=== PATIENT | female | born 1975 | race Caucasian/White ===

== ENCOUNTER 2016-12-14 18:17 | Emergency (ER) | payer MEDICAID, OTHER ==
[2016-12-14] MEDS ORDERED: NORMAL SALINE 1000 ML 1,000 ML IV PRN (18:55)
[2016-12-14] MEDS ORDERED: KETOROLAC TROMETHAMINE INJ/PF 30 MG/1 ML SDV IV ONE (19:00)
[2016-12-14] MEDS ORDERED: DIPHENHYDRAMINE HCL 50 MG/ML VIAL IV ONE (19:00)
[2016-12-14] MEDS ORDERED: METOCLOPRAMIDE HCL INJ/PF 10 MG/2 ML SDV IV ONE (19:00)
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
[2016-12-14 20:01] LABS: ABSOLUTE BASOPHILS # (AUTO) 0.2 10^3/uL (0.0-0.2); ABSOLUTE EOSINOPHILS # (AUTO) 0.5 10^3/uL (0.0-0.6); ABSOLUTE LYMPHOCYTES (AUTO) 3.5 10^3/uL (0.5-4.7); ABSOLUTE MONOCYTES (AUTO) 0.9 10^3/uL (0.1-1.4); ABSOLUTE NEUT (AUTO) 8.7 10^3/uL (1.7-8.2); BASOPHILS % (AUTO) 1.1 % (0-2); EOSINOPHILS % (AUTO) 3.3 % (0-6); HEMOGLOBIN 13.6 g/dL (12.0-15.5); HGB HCT DIFFERENCE 0.8; LYMPHOCYTES % (AUTO) 25.6 % (13-45); MEAN CORPUSCULAR HEMOGLOBIN 29.6 pg (27.0-33.4); MEAN CORPUSCULAR HGB CONC 33.9 g/dL (32.0-36.0); MEAN CORPUSCULAR VOLUME 87 fl (80-97); MONOCYTES % (AUTO) 6.8 % (3-13); RED BLOOD COUNT 4.59 10^6/uL (3.72-5.28); RED CELL DISTRIBUTION WIDTH 13.7 % (11.5-14.0); SEGMENTED NEUTROPHILS % (AUTO) 63.2 % (42-78); WHITE BLOOD COUNT 13.8 10^3/uL (4.0-10.5)
[2016-12-14 20:07] LABS: ALANINE AMINOTRANSFERASE 13 U/L (9-52); ALKALINE PHOSPHATASE 71 U/L (38-126); ANION GAP 12 (5-19); ASPARTATE AMINO TRANSFERASE 18 U/L (14-36); BILIRUBIN,DIRECT 0.4 mg/dL (0.0-0.4); BILIRUBIN,TOTAL 0.4 mg/dL (0.2-1.3); BLOOD UREA NITROGEN 15 mg/dL (7-20); CALCIUM 8.7 mg/dL (8.4-10.2); CARBON DIOXIDE 23 mmol/L (22-30); CHLORIDE 105 mmol/L (98-107); CREATININE RESULT 0.71 mg/dL (0.52-1.25); GLUCOSE 123 mg/dL (75-110); POTASSIUM 4.1 mmol/L (3.6-5.0); SODIUM 139.7 mmol/L (137-145); TOTAL PROTEIN 6.7 g/dL (6.3-8.2)
[2016-12-14 22:36] VITALS: BP 135/99
== END 2016-12-14 22:35 | disposition home or self-care (01) ==
LOC: ER 18:17
DX: M54.2 Cervicalgia (principal); R51 Headache; F17.210 Nicotine dependence, cigarettes, uncomplicated
CPT/HCPCS: 99284; 96361; 96374; 96375; 36415; 85025; 80053; J1200; J1885; J2765; J7030

== ENCOUNTER → 2017-04-22 | Emergency (ER) | payer MEDICAID ==
--- NOTE | 2017-04-23 09:13 | RADIOLOGY REPORT (SQ) ---
EXAM DESCRIPTION: ELBOW LEFT OVER 2 VIEWS COMPLETED DATE/TIME: 04/23/2017 3:29 am REASON FOR STUDY: FALL COMPARISON: None. NUMBER OF VIEWS: Four views. TECHNIQUE: AP, lateral, and both oblique radiographic images acquired of the left elbow. LIMITATIONS: None. FINDINGS: MINERALIZATION: Normal. BONES: No acute fracture or dislocation. No worrisome bone lesions. JOINT: No effusion. SOFT TISSUES: No soft tissue swelling. No foreign body. OTHER: No other significant finding. IMPRESSION: NEGATIVE STUDY OF THE LEFT ELBOW. NO RADIOGRAPHIC EVIDENCE OF ACUTE INJURY. TECHNICAL DOCUMENTATION: JOB ID: [id number] [employer]- All Rights Reserved
--- NOTE | 2017-04-23 09:17 | RADIOLOGY REPORT (SQ) ---
EXAM DESCRIPTION: KNEE LEFT 4 VIEW COMPLETED DATE/TIME: 04/23/2017 3:29 am REASON FOR STUDY: FALL COMPARISON: None. NUMBER OF VIEWS: Four views. TECHNIQUE: AP, lateral, and both oblique radiographic images acquired of the left knee. LIMITATIONS: None. FINDINGS: MINERALIZATION: Normal. BONES: No acute fracture or dislocation. No worrisome bone lesions. JOINT: No effusion. SOFT TISSUES: No soft tissue swelling. No radio-opaque foreign body. OTHER: No other significant finding. IMPRESSION: NEGATIVE STUDY OF THE LEFT KNEE. NO RADIOGRAPHIC EVIDENCE OF ACUTE INJURY. TECHNICAL DOCUMENTATION: JOB ID: [id number] [employer]- All Rights Reserved
== END ==
LOC: ER 17:55
DX: S13.9XXA Sprain of joints and ligaments of unspecified parts of neck, initial encounter (principal); S80.02XA Contusion of left knee, initial encounter; S50.02XA Contusion of left elbow, initial encounter; M25.522 Pain in left elbow; M25.562 Pain in left knee; M54.2 Cervicalgia; W00.0XXA Fall on same level due to ice and snow, initial encounter; F17.200 Nicotine dependence, unspecified, uncomplicated
CPT/HCPCS: 99283

== ENCOUNTER 2017-04-27 08:34 | Day surgery (SDC) | payer MEDICAID ==
[2017-04-23 11:47] LABS: HEMATOCRIT 39.4 % (36.0-47.0); HEMOGLOBIN 13.4 g/dL (12.0-15.5); MEAN CORPUSCULAR HEMOGLOBIN 29.8 pg (27.0-33.4); MEAN CORPUSCULAR HGB CONC 34.1 g/dL (32.0-36.0); MEAN CORPUSCULAR VOLUME 87 fl (80-97); PLATELET COUNT 381 10^3/uL (150-450); RED BLOOD COUNT 4.51 10^6/uL (3.72-5.28); RED CELL DISTRIBUTION WIDTH 13.6 % (11.5-14.0); WHITE BLOOD COUNT 10.5 10^3/uL (4.0-10.5)
[2017-04-23 11:53] LABS: APPEARANCE,URINE SLIGHTLY-CLOUDY; BILIRUBIN,URINE NEGATIVE (NEGATIVE); COLOR,URINE YELLOW; GLUCOSE, URINE NEGATIVE (NEGATIVE); KETONES,URINE NEGATIVE (NEGATIVE); LEUKOCYTE ESTERASE,URINE NEGATIVE (NEGATIVE); NITRITE,URINE NEGATIVE (NEGATIVE); PROTEIN,URINE NEGATIVE (NEGATIVE); URINE SPECIFIC GRAVITY 1.023; UROBILINOGEN,URINE NEGATIVE mg/dL (<2.0)
[~2017-04-27 08:34] MED LIST: LACTATED RINGERS 1000 ML IV PRN; LIDOCAINE 0.5% INJ-PF (5 MG/ML) 50 ML SDV SUBCUT PRN
[2017-04-27] MEDS ORDERED: MIDAZOLAM 2 MG/2 ML INJ ONE ×2 (09:09→09:22)
[2017-04-27] MEDS ORDERED: FENTANYL CITRATE INJ/PF 100 MCG/2 ML AMPUL ONE ×3 (09:22→10:38)
[2017-04-27] MEDS ORDERED: PROPOFOL INJ 200 MG/20 ML VIAL IV ONE (09:23)
[2017-04-27] MEDS ORDERED: ONDANSETRON HCL INJ/PF 4 MG/2 ML SDV ONE ×2 (09:23→11:56)
[2017-04-27] MEDS ORDERED: ACETAMINOPHEN 100 ML IV ONE (09:52)
[2017-04-27] MEDS ORDERED: DIPHENHYDRAMINE HCL 50 MG/ML VIAL IV PRN (09:58)
[2017-04-27] MEDS ORDERED: PROMETHAZINE HCL INJ 25 MG/1 ML VIAL IV PRN ×2 (09:58)
[2017-04-27] MEDS ORDERED: FENTANYL CITRATE INJ/PF 100 MCG/2 ML AMPUL IV PRN ×2 (09:58)
[2017-04-27] MEDS ORDERED: MEPERIDINE HCL/PF INJ 25 MG/1 ML DISP.SYRIN IV PRN (09:58)
--- NOTE | 2017-04-27 10:24 | Operative Report ---
Operative Report DATE OF SURGERY: 04/27/17 PREOPERATIVE DIAGNOSIS: Heavy menses POSTOPERATIVE DIAGNOSIS: Same OPERATION: Hysteroscopy NovaSure ablation SURGEON: KRISTI MCCONNELL ANESTHESIA: GA TISSUE REMOVED OR ALTERED: Endometrial cavity COMPLICATIONS: None ESTIMATED BLOOD LOSS: 10 cc INTRAOPERATIVE FINDINGS: Endometrial cavity appeared empty. She had a very tight stenotic cervical OS. The uterine cavity was 5.5 cm in length and 4 cm in width. The sound was to 8 cm before and after the case PROCEDURE: Patient was taken the OR and placed in supine position. General anesthesia was induced. She is placed in dorsolithotomy position using Nathan stirrups. Her perineum and vagina were prepared and draped in sterile fashion. Her bladder was emptied with a red rubber catheter. A weighted speculum was placed in the anterior lip cervix grasped with tenaculum. Uterus was sounded to 8 cm before and at the end of the case. With some degree of difficulty the cervix was dilated. It was a very firm cervical loss and difficult to dilate. Hysteroscopy was performed in the uterine cavity appeared empty. The length of the uterine cavity was measured at 5.5 cm. The NovaSure ablation device was placed in the width was 4 cm. The ablation was tested and then fired without difficulty. View of the uterine cavity showed a well ablated uterine cavity at the end of the case. There is no evidence of injury to the uterine cavity. Sound once again was 8 cm. All instruments were removed. There was a small cervical laceration from the tenaculum that was closed with a [id number] chromic suture. The patient was placed back in supine position brought out of anesthesia and taken recovery recovery room in stable condition.
[2017-04-27] MEDS ORDERED: IBUPROFEN 800 MG TABLET PO PRN (10:32)
[2017-04-27] MEDS ORDERED: OXYCODONE-ACETAMINOPHEN 5-325 MG TABLET PO PRN ×2 (10:33)
[2017-04-27] MEDS ORDERED: KETOROLAC TROMETHAMINE INJ/PF 30 MG/1 ML SDV ONE (10:38)
[2017-04-27] MEDS: FENTANYL CITRATE INJ/PF 100 MCG/2 ML AMPUL IV PRN ×2 (10:43→10:56)
[2017-04-27] MEDS ORDERED: KETOROLAC TROMETHAMINE INJ/PF 30 MG/1 ML SDV IV PRN (11:00)
[2017-04-27] MEDS ORDERED: DEXAMETHASONE SOD PHOS INJ 10 MG/1 ML VIAL ONE (11:58)
[2017-04-27 13:26] VITALS: BP 145/92
[2017-04-27] MEDS ORDERED: KETOROLAC TROMETHAMINE 60 MG/2 ML SDV ONE (13:34)
== END 2017-04-27 12:30 | disposition home or self-care (01) ==
LOC: OROUT 08:34
PROVIDERS: ATTEND Obstetrics & Gynecology
PROC: 0U5B8ZZ Destruction of Endometrium, Via Natural or Artificial Opening Endoscopic (ICD-10-PCS; principal; 2017-04-27 10:45)
DX: N92.0 Excessive and frequent menstruation with regular cycle (principal); N94.6 Dysmenorrhea, unspecified; N88.2 Stricture and stenosis of cervix uteri; N93.9 Abnormal uterine and vaginal bleeding, unspecified; I10 Essential (primary) hypertension; Z87.891 Personal history of nicotine dependence; Z79.899 Other long term (current) drug therapy; Z88.5 Allergy status to narcotic agent
CPT/HCPCS: 36415; 85027; 81001; 58563; J2250; J1885 ×2; J3010; J2405; J2704; J1100; J0131; 952; J2550

== ENCOUNTER 2017-05-21 21:20 | Emergency (ER) | payer MEDICAID ==
[2017-05-21 22:36] VITALS: BP 122/81
--- NOTE | 2017-05-22 00:03 | RADIOLOGY REPORT (SQ) ---
EXAM DESCRIPTION: FOOT RIGHT COMPLETE CLINICAL HISTORY: Pain s/p injury. A pipe fell on the right first toe. Bruising our first toe. COMPARISON: None. FINDINGS: 3 views of the right foot. No acute fracture or dislocation. Normal osseous mineralization. No radiopaque foreign bodies or subcutaneous air. IMPRESSION: No acute fracture or dislocation.
[2017-05-22] MEDS ORDERED: HYDROCODONE/ACETAMINOPHEN 5-325 MG TABLET PO ONE (00:04)
--- NOTE | 2017-05-22 00:06 | ER Document Report ---
ED General - General Chief Complaint: R foot injury Stated Complaint: FOOT INJURY Time Seen by Provider: 05/21/17 23:26 Mode of Arrival: Ambulatory Information source: Patient Notes: 41-year-old female presents with complaints of foot injury. Patient notes to metal pipes fell on her foot prior to arrival. Patient presents with a postop shoe that she has had from previous foot injuries she denies any other complaints TRAVEL OUTSIDE OF THE [place] IN LAST 30 DAYS: No - HPI Onset: Just prior to arrival Onset/Duration: Sudden Quality of pain: Achy Severity: Mild Pain Level: 1 Associated symptoms: Body/muscle aches, Other Exacerbated by: Movement, Walking Relieved by: Denies Similar symptoms previously: No Recently seen / treated by doctor: No - Related Data Allergies/Adverse Reactions: morphine Allergy (Verified 04/27/17 08:55) tramadol Allergy (Verified 04/27/17 08:55) Difficulty breathing Past Medical History - Social History Smoking Status: Never Smoker Cigarette use (# per day): No Chew tobacco use (# tins/day): No Smoking Education Provided: No Family History: Reviewed & Not Pertinent - Past Medical History Cardiac Medical History: Reports: Hx Hypertension Denies: Hx Coronary Artery Disease, Hx Heart Attack Pulmonary Medical History: Denies: Hx Asthma, Hx Bronchitis, Hx COPD, Hx Pneumonia Neurological Medical History: Denies: Hx Cerebrovascular Accident, Hx Seizures Renal/ Medical History: Denies: Hx Peritoneal Dialysis Musculoskeltal Medical History: Denies Hx Arthritis Psychiatric Medical History: Reports: Hx Anxiety Past Surgical History: Reports: Hx Breast Surgery - implants, Hx Orthopedic Surgery - right wrist plates and screws, Hx Tubal Ligation - Immunizations Hx Diphtheria, Pertussis, Tetanus Vaccination: Yes Hx Pneumococcal Vaccination: 01/14/17 Review of Systems - Review of Systems Notes: REVIEW OF SYSTEMS: CONSTITUTIONAL : Denies fever, chills, or sweats. Denies recent illness. EENT: Denies eye, ear, throat, or mouth pain or symptoms. Denies nasal or sinus congestion or discharge. Denies throat, tongue, or mouth swelling or difficulty swallowing. CARDIOVASCULAR: Denies chest pain. Denies palpitations or racing or irregular heart beat. Denies ankle edema. RESPIRATORY: Denies cough, cold, or chest congestion. Denies shortness of breath, difficulty breathing, or wheezing. GASTROINTESTINAL: Denies abdominal pain or distention. Denies nausea, vomiting , or diarrhea. Denies blood in vomitus, stools, or per rectum. Denies black, tarry stools. Denies constipation. GENITOURINARY: Denies difficulty urinating, painful urination, burning, frequency, blood in urine, or discharge. FEMALE GENITOURINARY: Denies vaginal bleeding, heavy or abnormal periods, irregular periods. Denies vaginal discharge or odor. MUSCULOSKELETAL: Admits to toe pain SKIN: Denies rash, lesions or sores. HEMATOLOGIC : Denies easy bruising or bleeding. LYMPHATIC: Denies swollen, enlarged glands. NEUROLOGICAL: Denies confusion or altered mental status. Denies passing out or loss of consciousness. Denies dizziness or lightheadedness. Denies headache. Denies weakness or paralysis or loss of use of either side. Denies problems with gait or speech. Denies sensory loss, numbness, or tingling. Denies seizures. PSYCHIATRIC: Denies anxiety or stress. Denies depression, suicidal ideation, or homicidal ideation. ALL OTHER SYSTEMS REVIEWED AND NEGATIVE. PHYSICAL EXAMINATION: PHYSICAL EXAMINATION: GENERAL: Well-appearing, well-nourished and in no acute distress. HEAD: Atraumatic, normocephalic. EYES: Pupils equal round extraocular movements intact, conjunctiva are normal. ENT: Nares patent NECK: Normal range of motion LUNGS: No respiratory distress Musculoskeletal: Normal range of motion NEUROLOGICAL: Normal speech, normal gait. PSYCH: Normal mood, normal affect. SKIN: tender to palpation of the 1st digit with echymosis on the plantar medial aspect Physical Exam - Vital signs Vitals: Temp Pulse Resp BP Pulse Ox 97.7 F 95 16 122/81 98 05/21/17 22:29 05/21/17 22:29 05/21/17 22:29 05/21/17 22:29 05/21/17 22:29 Course - Re-evaluation Re-evalutation: 05/22/17 06:51 Patient's x-ray noted no acute abnormality patient overall looks well is in no distress, x-ray is consistent with just a contusion, she already has a postop shoe, patient will be given pain control follow-up with orthopedics After performing a Medical Screening Examination, I estimate there is LOW risk for INTRACRANIAL HEMORRHAGE, UNSTABLE SPINE FRACTURE, CENTRAL CORD SYNDROME, CAUDA EQUINA, THORACIC AORTIC DISSECTION, PNEUMOTHORAX, PERFORATED BOWEL, RUPTURED ABDOMINAL AORTIC ANEURYSM, ACUTE TENDON RUPTURE, COMPARTMENT SYNDROME, or OPEN FRACTURE, thus I consider the discharge disposition reasonable. Also, there is no evidence or peritonitis, sepsis, or toxicity. I have reevaluated this patient multiple times and no significant life threatening changes are noted. The patient and I have discussed the diagnosis and risks, and we agree with discharging home to follow-up with their primary doctor with the understanding that symptoms and presentations can change. We also discussed returning to the Emergency Department immediately if new or worsening symptoms occur. We have discussed the symptoms which are most concerning (e.g., bloody stool, fever, changing or worsening pain, vomiting) that necessitate immediate return. - Vital Signs Vital signs: Temp Pulse Resp BP Pulse Ox 97.7 F 95 16 122/81 98 05/21/17 22:29 05/21/17 22:29 05/21/17 22:29 05/21/17 22:29 05/21/17 22:29 - Diagnostic Test Radiology reviewed: Image reviewed, Reports reviewed - no acute abnormality Discharge - Discharge Clinical Impression: Contusion of bone, Ecchymosis Foot injury Qualifiers: Encounter type: initial encounter Laterality: right Qualified Code(s): S99.921A - Unspecified injury of right foot, initial encounter Condition: Stable Disposition: HOME, SELF-CARE Prescriptions: Hydrocodone/Acetaminophen [Anson 5-325 mg Tablet] 1 tab PO Q6 #14 tablet Referrals: SUZANNE CHAVEZ MD [Primary Care Provider] - Follow up as needed COURTNEY IVERSON MD [ACTIVE STAFF] - Follow up in 3-5 days
== END 2017-05-22 00:33 | disposition home or self-care (01) ==
LOC: ER 21:20
DX: S90.31XA Contusion of right foot, initial encounter (principal); W20.8XXA Other cause of strike by thrown, projected or falling object, initial encounter; Z88.6 Allergy status to analgesic agent; I10 Essential (primary) hypertension; Z98.51 Tubal ligation status
CPT/HCPCS: 99283

== ENCOUNTER → 2017-11-14 | Outpatient (CLI) | payer MEDICAID | LOC: OD 11:28 | PROVIDERS: ATTEND Nurse Practitioner Acute Care | DX: R31.9 Hematuria, unspecified (principal) | CPT/HCPCS: 87086 ==

== ENCOUNTER 2018-01-01 09:59 | Emergency (ER) | payer MEDICAID ==
[2018-01-01] MEDS ORDERED: DICYCLOMINE HCL INJ 20 MG/2 ML AMPULE IM ONE (10:20)
--- NOTE | 2018-01-01 10:21 | ER Document Report ---
ED Medical Screen (RME) - General Chief Complaint: Vaginal Bleeding Stated Complaint: SKIN SORES, ABDOMINAL PAIN Time Seen by Provider: 01/01/18 10:13 Notes: 42 years old female with a history of uterine ablation almost 10 months ago, did not have any uterine bleeding but for the last 2 months having on and off bleeding with abdominal cramp. The cramping was so severe this morning therefore present to the ED. No fever chills or other constitutional symptoms. Continuously having on and off vaginal bleeding. TRAVEL OUTSIDE OF THE [place] IN LAST 30 DAYS: No - Related Data Allergies/Adverse Reactions: morphine Allergy (Verified 01/01/18 10:01) tramadol Allergy (Verified 01/01/18 10:01) Difficulty breathing Past Medical History - Social History Frequency of alcohol use: Occasional - Past Medical History Cardiac Medical History: Reports: Hx Hypertension Denies: Hx Coronary Artery Disease, Hx Heart Attack Pulmonary Medical History: Denies: Hx Asthma, Hx Bronchitis, Hx COPD, Hx Pneumonia Neurological Medical History: Denies: Hx Cerebrovascular Accident, Hx Seizures Renal/ Medical History: Denies: Hx Peritoneal Dialysis Musculoskeltal Medical History: Denies Hx Arthritis Psychiatric Medical History: Reports: Hx Anxiety Past Surgical History: Reports: Hx Breast Surgery - implants, Hx Orthopedic Surgery - right wrist plates and screws, Hx Tubal Ligation - Immunizations Hx Diphtheria, Pertussis, Tetanus Vaccination: Yes History of Influenza Vaccine for 01/2017 - 06/2017 Season: No Physical Exam - Vital signs Vitals: Temp Pulse Resp BP Pulse Ox 97.4 F 95 18 115/81 97 01/01/18 10:05 01/01/18 10:05 01/01/18 10:05 01/01/18 10:05 01/01/18 10:05 Course - Vital Signs Vital signs: Temp Pulse Resp BP Pulse Ox 97.4 F 95 18 115/81 97 01/01/18 10:05 01/01/18 10:05 01/01/18 10:05 01/01/18 10:05 01/01/18 10:05 Doctor's Discharge - Discharge Referrals: CHEYENNE JOHN NP [Primary Care Provider] - Follow up as needed
[2018-01-01] MEDS: KETOROLAC TROMETHAMINE INJ/PF 30 MG/1 ML SDV IV ONE ×2 (10:44→10:48)
[2018-01-01] MEDS ORDERED: KETOROLAC TROMETHAMINE 60 MG/2 ML SDV IM ONE (10:51)
[2018-01-01] MEDS ORDERED: KETOROLAC TROMETHAMINE 60 MG/2 ML SDV ONE (10:52)
[2018-01-01 11:12] LABS: ABSOLUTE BASOPHILS # (AUTO) 0.1 10^3/uL (0.0-0.2); ABSOLUTE EOSINOPHILS # (AUTO) 0.2 10^3/uL (0.0-0.6); ABSOLUTE LYMPHOCYTES (AUTO) 3.1 10^3/uL (0.5-4.7); ABSOLUTE MONOCYTES (AUTO) 1.1 10^3/uL (0.1-1.4); ABSOLUTE NEUT (AUTO) 8.9 10^3/uL (1.7-8.2); BASOPHILS % (AUTO) 0.6 % (0-2); EOSINOPHILS % (AUTO) 1.7 % (0-6); HEMATOCRIT 39.2 % (36.0-47.0); HEMOGLOBIN 13.4 g/dL (12.0-15.5); LYMPHOCYTES % (AUTO) 23.1 % (13-45); MEAN CORPUSCULAR HEMOGLOBIN 29.4 pg (27.0-33.4); MEAN CORPUSCULAR HGB CONC 34.1 g/dL (32.0-36.0); MEAN CORPUSCULAR VOLUME 86 fl (80-97); MONOCYTES % (AUTO) 7.9 % (3-13); PLATELET COUNT 373 10^3/uL (150-450); RED BLOOD COUNT 4.54 10^6/uL (3.72-5.28); RED CELL DISTRIBUTION WIDTH 13.6 % (11.5-14.0); SEGMENTED NEUTROPHILS % (AUTO) 66.7 % (42-78); TOTAL CELLS COUNTED % (AUTO) 100 %; WHITE BLOOD COUNT 13.4 10^3/uL (4.0-10.5)
[2018-01-01 11:28] LABS: APPEARANCE,URINE CLEAR; BILIRUBIN,URINE NEGATIVE (NEGATIVE); COLOR,URINE YELLOW; GLUCOSE, URINE NEGATIVE (NEGATIVE); KETONES,URINE NEGATIVE (NEGATIVE); URINE SPECIFIC GRAVITY 1.028
[2018-01-01 11:30] LABS: LEUKOCYTE ESTERASE,URINE NEGATIVE (NEGATIVE); NITRITE,URINE NEGATIVE (NEGATIVE); PROTEIN,URINE 30 mg/dL (NEGATIVE); UROBILINOGEN,URINE NEGATIVE mg/dL (<2.0)
[2018-01-01] MEDS ORDERED: HYDROCODONE/ACETAMINOPHEN 5-325 MG TABLET PO ONE (11:33)
[2018-01-01 11:42] LABS: ALANINE AMINOTRANSFERASE 12 U/L (9-52); ALKALINE PHOSPHATASE 46 U/L (38-126); ANION GAP 7 (5-19); ASPARTATE AMINO TRANSFERASE 15 U/L (14-36); BILIRUBIN,DIRECT 0.4 mg/dL (0.0-0.4); BILIRUBIN,TOTAL 0.5 mg/dL (0.2-1.3); BLOOD UREA NITROGEN 15 mg/dL (7-20); CALCIUM 9.1 mg/dL (8.4-10.2); CARBON DIOXIDE 29 mmol/L (22-30); CHLORIDE 104 mmol/L (98-107); GLUCOSE 94 mg/dL (75-110); POTASSIUM 3.9 mmol/L (3.6-5.0); SODIUM 140.1 mmol/L (137-145); TOTAL PROTEIN 6.8 g/dL (6.3-8.2)
--- NOTE | 2018-01-01 13:27 | RADIOLOGY REPORT (SQ) ---
EXAM DESCRIPTION: U/S NON-OB PELVIS TV W/O DOP COMPLETED DATE/TIME: 01/01/2018 1:18 pm REASON FOR STUDY: Uterine bleeding COMPARISON: None. TECHNIQUE: Dynamic and static grayscale images acquired of the pelvis via transvaginal approach and recorded on PACS. Additional selected color Doppler and spectral images recorded. LIMITATIONS: None. FINDINGS: UTERUS: 5 cm heterogenous mass in the fundus. ENDOMETRIAL STRIPE: No focal or generalized thickening. No masses. CERVIX: No nabothian cysts. RIGHT OVARY AND DOPPLER: Normal size. No worrisome masses. Normal arterial vascular flow without evid ence for torsion. LEFT OVARY AND DOPPLER: Ovary not visualized. FREE FLUID: None noted. OTHER: No other significant finding. MEASUREMENTS: UTERUS: 6.7 x 7.9 x 9.6 cm. ENDOMETRIAL STRIPE: 7 mm. RIGHT OVARY: 2.2 x 2.3 x 3.1 cm. LEFT OVARY: Not visualized. IMPRESSION: 5 CM HETEROGENOUS MASS IN THE FUNDUS OF THE UTERUS, PRESUMABLY A FIBROID. TECHNICAL DOCUMENTATION: JOB ID: [id number]- All Rights Reserved Rev-08/31 Reading location - IP/workstation name: [email or web address]
--- NOTE | 2018-01-01 13:28 | ER Document Report ---
ED General - General Chief Complaint: Vaginal Bleeding Stated Complaint: SKIN SORES, ABDOMINAL PAIN Time Seen by Provider: 01/01/18 10:13 Mode of Arrival: Ambulatory TRAVEL OUTSIDE OF THE [place] IN LAST 30 DAYS: No - HPI Patient complains to provider of: vaginal bleeding Onset: Other - 42-year-old female with past medical history significant for a tubal ligation as well as 2 presents for evaluation of painful vaginal spotting over the last 2 months after having had an endometrial ablation a year prior. She denies any chest pain abdominal pain diarrhea constipation dysuria shortness of breath lightheadedness fevers or chills, does note that the blood seems a little bit darker today. - Related Data Allergies/Adverse Reactions: morphine Allergy (Verified 01/01/18 10:01) tramadol Allergy (Verified 01/01/18 10:01) Difficulty breathing Past Medical History - General Information source: Patient - Social History Smoking Status: Current Every Day Smoker Frequency of alcohol use: Occasional Family History: Reviewed & Not Pertinent Patient has suicidal ideation: No Patient has homicidal ideation: No - Past Medical History Cardiac Medical History: Reports: Hx Hypertension Denies: Hx Coronary Artery Disease, Hx Heart Attack Pulmonary Medical History: Denies: Hx Asthma, Hx Bronchitis, Hx COPD, Hx Pneumonia Neurological Medical History: Denies: Hx Cerebrovascular Accident, Hx Seizures Renal/ Medical History: Denies: Hx Peritoneal Dialysis Musculoskeletal Medical History: Denies Hx Arthritis Psychiatric Medical History: Reports: Hx Anxiety Past Surgical History: Reports: Hx Breast Surgery - implants, Hx Orthopedic Surgery - right wrist plates and screws, Hx Tubal Ligation - Immunizations Hx Diphtheria, Pertussis, Tetanus Vaccination: Yes Hx Pneumococcal Vaccination: 01/14/17 Review of Systems - Review of Systems -: Yes All other systems reviewed and negative Physical Exam - Vital signs Vitals: Temp Pulse Resp BP Pulse Ox 97.4 F 95 18 115/81 97 01/01/18 10:05 01/01/18 10:05 01/01/18 10:05 01/01/18 10:05 01/01/18 10:05 - General General appearance: Appears well In distress: None - HEENT Head: Normocephalic Eyes: Normal Conjunctiva: Normal Cornea: Normal Extraocular movements intact: Yes Eyelashes: Normal - Respiratory Respiratory status: No respiratory distress Chest status: Nontender Breath sounds: Normal Chest palpation: Normal - Cardiovascular Rhythm: Regular Murmur: No - Abdominal Inspection: Normal Distension: No distension Tenderness: Tender - Suprapubic aspect - Back Back: Normal - Extremities General upper extremity: Normal inspection, Nontender, Normal ROM, Normal strength General lower extremity: Normal inspection, Nontender, Normal ROM, Normal strength - Neurological Neuro grossly intact: Yes Cognition: Normal Orientation: AAOx4 Josué Coma Scale Eye Opening: Spontaneous Josué Coma Scale Verbal: Oriented Josué Coma Scale Motor: Obeys Commands [place] Coma Scale Total: 15 Speech: Normal Cranial nerves: Normal Motor strength normal: LUE, RUE, LLE, RLE - Psychological Associated symptoms: Normal affect Course - Re-evaluation Re-evalutation: 01/01/18 15:00 42-year-old female presents for cramping and vaginal bleeding in the setting of having a previous tubal ligation as well as endometrial ablation year prior. Examination her abdomen is benign, she looks overall well, she has been using ibuprofen and Tylenol as well as heating pads for pain. Through triage this patient had an ultrasound ordered as well as basic blood work, blood work did not demonstrate any obvious abnormality at this time. Patient's overall well-appearing, transvaginal ultrasound demonstrates that the patient has what appears to be a relatively large fibroid. No obvious cysts identified on the ovarian structures. Plan will be for this patient undergo discharge with encouraged follow-up at her boiler assistant operator. She will be given a prescription for Provera for her painful vaginal bleeding, she will be given ibuprofen to deal with her pain. - Vital Signs Vital signs: Temp Pulse Resp BP Pulse Ox 97.4 F 95 18 115/81 97 01/01/18 10:05 01/01/18 10:05 01/01/18 10:05 01/01/18 10:05 01/01/18 10:05 - Laboratory Result Diagrams: 01/01/18 10:45 01/01/18 10:45 Laboratory results interpreted by me: 01/01/18 01/01/18 10:45 10:45 WBC 13.4 H Absolute Neutrophils 8.9 H Urine Protein 30 H Urine Blood LARGE H Discharge - Discharge Clinical Impression: Vaginal bleeding, Pelvic pain Condition: Good Disposition: HOME, SELF-CARE Instructions: Pelvic Pain ([facility]), Vaginal Bleeding ([facility]) Additional Instructions: He was seen in the emergency department for your pelvic cramping, he had an evaluation including a physical exam as well as ultrasound and blood work. It seems like your pain is likely related to a fibroid. Use the medication prescribed to you as directed. Call your boiler assistant operator or cnc lathe machine operator tomorrow for an appointment. Return for worsening chest pain, shortness of breath, abdominal pain. Prescriptions: Ibuprofen 400 mg PO QID #40 capsule Medroxyprogesterone Acetate [Provera] 5 mg PO DAILY #15 tablet Referrals: CHEYENNE JOHN NP [Primary Care Provider] - Follow up as needed
[2018-01-01 14:19] VITALS: BP 131/75
== END 2018-01-01 14:19 | disposition home or self-care (01) ==
LOC: ER 09:59
DX: N93.9 Abnormal uterine and vaginal bleeding, unspecified (principal); R10.2 Pelvic and perineal pain; I10 Essential (primary) hypertension; F17.200 Nicotine dependence, unspecified, uncomplicated; Z98.51 Tubal ligation status; Z98.890 Other specified postprocedural states; Z88.5 Allergy status to narcotic agent
CPT/HCPCS: 99284; 36415; 83690; 85025; 81025; 80053; 81001; 76830; J0500; J1885 ×2

== ENCOUNTER 2019-03-18 20:03 | Inpatient (IN) | payer SELFPAY ==
[2019-03-18 20:35] LABS: ABSOLUTE LYMPHOCYTES (AUTO) 3.2 10^3/uL (0.5-4.7); ABSOLUTE MONOCYTES (AUTO) 0.6 10^3/uL (0.1-1.4); ABSOLUTE NEUT (AUTO) 10.7 10^3/uL (1.7-8.2); BASOPHILS % (AUTO) 0.3 % (0-2); HEMATOCRIT 43.3 % (36.0-47.0); HEMOGLOBIN 14.8 g/dL (12.0-15.5); LYMPHOCYTES % (AUTO) 21.9 % (13-45); MEAN CORPUSCULAR HEMOGLOBIN 29.9 pg (27.0-33.4); MEAN CORPUSCULAR HGB CONC 34.2 g/dL (32.0-36.0); MEAN CORPUSCULAR VOLUME 87 fl (80-97); MONOCYTES % (AUTO) 4.3 % (3-13); PLATELET COUNT 375 10^3/uL (150-450); RED BLOOD COUNT 4.97 10^6/uL (3.72-5.28); RED CELL DISTRIBUTION WIDTH 13.5 % (11.5-14.0); SEGMENTED NEUTROPHILS % (AUTO) 73.5 % (42-78); TOTAL CELLS COUNTED % (AUTO) 100 %; WHITE BLOOD COUNT 14.5 10^3/uL (4.0-10.5)
[2019-03-18] MEDS ORDERED: NORMAL SALINE 1000 ML 1,000 ML IV ONE (20:36)
--- NOTE | 2019-03-18 20:43 | ER Document Report ---
ED Psych Disorder / Suicide - General Chief Complaint: Overdose Stated Complaint: OVERDOSE Time Seen by Provider: 03/18/19 20:20 Primary Care Provider: CHEYENNE JOHN, ASHOK [NURSE PRACTITIONER] - Follow up as needed Mode of Arrival: Medic Information source: Patient, Relative - Son, Nasim Mohamud [phone] Notes: Patient is a 43-year-old female presenting to emergency department with an apparent acetaminophen overdose. Patient's son called 911 from another state as he was concerned about his mother, when EMS got there she was found lying on the floor in her closet with multiple acetaminophen bottles near her. There is 2 bottles of pills and one bottle of liquid. She was alert and oriented with normal vital signs however she was not forthcoming with information on how much Tylenol she took or when she took it. TRAVEL OUTSIDE OF THE [place] IN LAST 30 DAYS: No - Related Data Allergies/Adverse Reactions: morphine Allergy (Verified 01/01/18 10:01) tramadol Allergy (Verified 01/01/18 10:01) Difficulty breathing Past Medical History - General Information source: Patient - Social History Smoking Status: Current Every Day Smoker Frequency of alcohol use: Occasional Drug Abuse: None Lives with: Alone Family History: Reviewed & Not Pertinent Patient has suicidal ideation: Yes Patient has homicidal ideation: No - Past Medical History Cardiac Medical History: Reports: Hx Hypertension Denies: Hx Coronary Artery Disease, Hx Heart Attack Pulmonary Medical History: Denies: Hx Asthma, Hx Bronchitis, Hx COPD, Hx Pneumonia Neurological Medical History: Denies: Hx Cerebrovascular Accident, Hx Seizures Renal/ Medical History: Denies: Hx Peritoneal Dialysis Musculoskeletal Medical History: Denies Hx Arthritis Psychiatric Medical History: Reports: Hx Anxiety Past Surgical History: Reports: Hx Breast Surgery - implants, Hx Orthopedic Surgery - right wrist plates and screws, Hx Tubal Ligation - Immunizations Hx Diphtheria, Pertussis, Tetanus Vaccination: Yes Hx Pneumococcal Vaccination: 01/14/17 Review of Systems - Review of Systems Constitutional: No symptoms reported EENT: No symptoms reported Cardiovascular: No symptoms reported Respiratory: No symptoms reported Gastrointestinal: No symptoms reported Genitourinary: No symptoms reported Female Genitourinary: No symptoms reported Musculoskeletal: No symptoms reported Skin: No symptoms reported Hematologic/Lymphatic: No symptoms reported Neurological/Psychological: See HPI Physical Exam - Vital signs Vitals: Temp Pulse Resp BP Pulse Ox 97.5 F 114 H 26 H 145/106 H 99 03/18/19 20:13 03/18/19 20:13 03/18/19 20:13 03/18/19 20:13 03/18/19 20:13 - Notes Notes: PHYSICAL EXAMINATION: GENERAL: Well-nourished and in no acute distress. HEAD: Atraumatic, normocephalic. EYES: Pupils equal round and reactive to light, extraocular movements intact, conjunctiva are normal. ENT: Nares patent, oropharynx clear without exudates. Moist mucous membranes. NECK: Normal range of motion, supple without lymphadenopathy LUNGS: Breath sounds clear to auscultation bilaterally and equal. No wheezes rales or rhonchi. HEART: Regular rate and rhythm without murmurs ABDOMEN: Soft, nontender, nondistended abdomen. No guarding, no rebound. No masses appreciated. Female : deferred Musculoskeletal: Normal range of motion, no pitting or edema. No cyanosis. NEUROLOGICAL: Cranial nerves grossly intact. Normal speech, normal gait. Normal sensory, motor exams PSYCH: Tearful, poor eye contact. Flat affect. SKIN: Warm, Dry, normal turgor, no rashes or lesions noted. Course - Re-evaluation Re-evalutation: 03/18/19 20:37 Spoke with patient's son, Nasim Mohamud [phone], he states that patient just broke up with her boyfriend Andres Bear a few days ago. Patient's son reports patient has had depression issues over the last couple of years in relation to divorce and custody issues. Patient son reports that patient was found lying in her closet with 3 bottles of Tylenol. It is unknown how much she took or at what timeframe she took the Tylenol. Patient is awake, alert, not very forthcoming with information. Patient keeps stating that she was just trying to go to sleep. Patient denies any chronic medical conditions, denies the use of any daily medications, reports occasional alcohol use, is a smoker but denies any drug use. Labs pending. Nursing staff currently changing out patient. 03/18/19 21:26 Laboratory 03/18/19 03/18/19 20:10 20:10 WBC 14.5 H RBC 4.97 Hgb 14.8 Hct 43.3 MCV 87 MCH 29.9 MCHC 34.2 RDW 13.5 Plt Count 375 Lymph % (Auto) 21.9 [place] % (Auto) 4.3 Eos % (Auto) 0.0 Baso % (Auto) 0.3 Absolute Neuts (auto) 10.7 H Absolute Lymphs (auto) 3.2 Absolute Monos (auto) 0.6 Absolute Eos (auto) 0.0 Absolute Basos (auto) 0.0 Seg Neutrophils % 73.5 Sodium 145.1 H Potassium 3.7 Chloride 107 Carbon Dioxide 19 L Anion Gap 19 BUN 11 Creatinine 0.87 Est GFR ( Amer) > 60 Est GFR (MDRD) Non-Af > 60 Glucose 188 H Calcium 9.3 Total Bilirubin 0.4 Direct Bilirubin 0.2 Neonat Total Bilirubin Not Reportable Neonat Direct Bilirubin Not Reportable Neonat Indirect Bili Not Reportable AST 21 ALT 13 Alkaline Phosphatase 46 Total Protein 7.4 Albumin 4.7 Salicylates 1.3 L Acetaminophen 251 H* Serum Alcohol 97 Patient's acetaminophen level is elevated at 251. EKG shows a sinus tachycardia, rate of 108, QTc 477, normal axis, no ST segment elevations or depr essions to suggest ischemia. Acetadote orders placed. IVC paperwork initiated and signed by attending physician Dr. Moses. Patient will be admitted to the intensive care unit shortly. Patient continues to be awake, alert, not forthcoming with information. Discussed plan of care with patient. 03/18/19 21:36 Spoke with ICU roundhouse supervisor, DHRUV Mobley. 03/18/19 23:[address] Ritchie, patient accepted for admission to telemetry floor. Patient remains alert, oriented, vital signs within normal limits, Acetadote infusion ongoing. - Vital Signs Vital signs: Temp Pulse Resp BP Pulse Ox 97.5 F 114 H 26 H 145/106 H 99 03/18/19 20:15 03/18/19 20:13 03/18/19 20:16 03/18/19 20:15 03/18/19 20:16 - Laboratory Result Diagrams: 03/18/19 20:10 03/18/19 20:10 Laboratory results interpreted by me: 03/18/19 03/18/19 03/18/19 20:10 20:10 20:10 WBC 14.5 H Absolute Neuts (auto) 10.7 H Sodium 145.1 H Carbon Dioxide 19 L Glucose 188 H Creatine Kinase 192 H Salicylates 1.3 L Acetaminophen 251 H* Discharge - Discharge Clinical Impression: Acetaminophen overdose Qualifiers: Encounter type: initial encounter Injury intent: undetermined intent Qualified Code(s): T39.1X4A - Poisoning by 4-Aminophenol derivatives, undetermined, initial encounter Condition: Stable Disposition: ADMITTED INPATIENT Admitting Provider: Chau (Hospitalist) Unit Admitted: Telemetry Referrals: CHEYENNE JOHN NP [NURSE PRACTITIONER] - Follow up as needed
[2019-03-18 20:45] LABS: ALBUMIN 4.7 g/dL (3.5-5.0); ALCOHOL 97 mg/dL (NONE DETECTED); ALKALINE PHOSPHATASE 46 U/L (38-126); ASPARTATE AMINO TRANSFERASE 21 U/L (14-36); BILIRUBIN,DIRECT 0.2 mg/dL (0.0-0.4); BILIRUBIN,TOTAL 0.4 mg/dL (0.2-1.3); BLOOD UREA NITROGEN 11 mg/dL (7-20); CALCIUM 9.3 mg/dL (8.4-10.2); CARBON DIOXIDE 19 mmol/L (22-30); CHLORIDE 107 mmol/L (98-107); GLUCOSE 188 mg/dL (75-110); POTASSIUM 3.7 mmol/L (3.6-5.0); SALICYLATE 1.3 mg/dL (2.0-20.0); TOTAL PROTEIN 7.4 g/dL (6.3-8.2)
[2019-03-18] MEDS ORDERED: ONDANSETRON HCL INJ/PF 4 MG/2 ML SDV IV ONE (20:48)
[2019-03-18 20:50] LABS: ANION GAP 19 (5-19)
[2019-03-18 21:08] LABS: ACETAMINOPHEN 251 ug/mL (10-30)
[2019-03-18] MEDS ORDERED: ACETYLCYSTEINE INJ 6000 MG/30 ML IV ONE ×2 (21:15→22:15)
[2019-03-18] MEDS ORDERED: IPRATROPIUM/ALBUTEROL 0.5-2.5 MG/3 ML AMPUL NEB PRN (23:26)
[2019-03-18] MEDS ORDERED: MAGNESIUM HYDROXIDE SUSP 30 ML UDCUP PO PRN (23:26)
[2019-03-18] MEDS ORDERED: MAG HYDROX/AL HYDROX/SIMETH SUSP 30 ML UDCUP PO PRN (23:26)
[2019-03-18] MEDS ORDERED: METOCLOPRAMIDE HCL INJ/PF 10 MG/2 ML SDV IV ONE (23:44)
[2019-03-18] MEDS ORDERED: ARIPIPRAZOLE 5 MG TABLET PO ONE (23:59)
--- NOTE | 2019-03-19 00:35 | EKG REPORT ---
SEVERITY:- BORDERLINE ECG - SINUS TACHYCARDIA PROBABLE LEFT ATRIAL ABNORMALITY : Confirmed by: Raquel Gipson MD 19-Mar-2019 00:33:59
[2019-03-19 00:50] LABS: APPEARANCE,URINE CLEAR; BILIRUBIN,URINE NEGATIVE (NEGATIVE); COLOR,URINE YELLOW; GLUCOSE, URINE 150 mg/dL (NEGATIVE); KETONES,URINE 80 mg/dL (NEGATIVE); LEUKOCYTE ESTERASE,URINE NEGATIVE (NEGATIVE); NITRITE,URINE NEGATIVE (NEGATIVE); PROTEIN,URINE 30 mg/dL (NEGATIVE); URINE SPECIFIC GRAVITY 1.027; UROBILINOGEN,URINE NEGATIVE mg/dL (<2.0)
[2019-03-19 01:11] LABS: URINE AMPHETAMINES SCREEN NEGATIVE; URINE BARBITURATES SCREEN NEGATIVE; URINE BENZODIAZEPINES SCREEN NEGATIVE; URINE COCAINE SCREEN NEGATIVE; URINE METHADONE SCREEN NEGATIVE; URINE PHENCYCLIDINE SCREEN NEGATIVE
[2019-03-19 01:12] LABS: URINE MARIJUANA (THC) SCREEN UNCONFIRMED POSITIVE
[2019-03-19] MEDS ORDERED: ACETYLCYSTEINE INJ 6000 MG/30 ML IV ONE (02:15)
[2019-03-19] MEDS: HEPARIN SOD (PORCINE) 5,000 UNIT/ML 1 ML VIAL SUBCUT SCH ×3 (05:36→21:17)
--- NOTE | 2019-03-19 06:02 | PDOC H&P ---
History of Present Illness Admission Date/PCP: 03/18/19 23:57 Patient complains of: Depression with overdose History of Present Illness: DANIELITO CHAVEZ is a 43 year old female with past medical history of depression, tobacco and substance abuse. She presents after discovered by her son disheveled with empty bottles of Tylenol. Patient was brought to the emergency room for evaluation found to have a toxic acetaminophen level of 251 and started on Acetadote. Patient is IVC and unwilling to provide history or cooperate with provider other than stating she was on antidepressants in the past but otherwise describes her "situation is crazy" but does not elaborate. Past Medical History Cardiac Medical History: Reports: Hypertension Denies: Coronary Artery Disease, Myocardial Infarction Pulmonary Medical History: Denies: Asthma, Bronchitis, Chronic Obstructive Pulmonary Disease (COPD), Pneumonia Neurological Medical History: Denies: Seizures Musculoskeltal Medical History: Denies: Arthritis Psychiatric Medical History: Reports: Depression, Substance Abuse, Tobacco Dependency Hematology: Denies: Anemia Past Surgical History Past Surgical History: Reports: Orthopedic Surgery - right wrist plates and screws, Tubal Ligation Social History Information Source: Patient Lives with: Alone Smoking Status: Current Every Day Smoker Drugs: Marijuana - Advance Directive Resuscitation Status: Full Code Family History Family History: Other - Refuses Parental Family History Reviewed: No - Unknown Children Family History Reviewed: No - Unknown Sibling(s) Family History Reviewed.: No - Unknown Medication/Allergy Home Medications: Buspirone HCl [Buspar 10 mg Tablet] 10 mg PO DAILY 02/18/16 Duloxetine HCl [Cymbalta] 60 mg PO DAILY 02/18/16 Hydrocodone/Acetaminophen [Warren 5-325 mg Tablet] 1 tab PO Q4 PRN 02/18/16 Brexpiprazole [Rexulti] 1 mg PO DAILY 04/18/17 Lisinopril 20 mg PO DAILY 04/18/17 Suvorexant [Belsomra] 10 mg PO HSP PRN 04/18/17 Hydrocodone/Acetaminophen [Warren 5-325 mg Tablet] 1 tab PO Q6 #14 tablet 05/22/17 Ibuprofen 400 mg PO QID #40 capsule 01/01/18 Medroxyprogesterone Acetate [Provera] 5 mg PO DAILY #15 tablet 01/01/18 Allergies/Adverse Reactions: morphine Allergy (Verified 01/01/18 10:01) tramadol Allergy (Verified 01/01/18 10:01) Difficulty breathing Review of Systems ROS unobtainable: Due to mental status - Refuses Physical Exam Vital Signs: Temp Pulse Resp BP Pulse Ox 97.5 F 114 H 18 159/107 H 100 03/18/19 20:15 03/18/19 20:13 03/19/19 04:01 03/19/19 04:00 03/19/19 04:37 Intake & Output 03/17/19 03/18/19 03/19/19 11:59 11:59 11:59 Intake Total 1000 Balance 1000 Weight 58.3 kg General appearance: PRESENT: disheveled, mild distress, well-developed, well- nourished. ABSENT: cooperative, obese Head exam: PRESENT: atraumatic, normocephalic Eye exam: PRESENT: conjunctiva pink, EOMI, PERRLA. ABSENT: scleral icterus Ear exam: PRESENT: normal external ear exam Mouth exam: PRESENT: moist, tongue midline Neck exam: ABSENT: carotid bruit, JVD, lymphadenopathy, thyromegaly Respiratory exam: PRESENT: clear to auscultation karl. ABSENT: rales, rhonchi, wheezes Cardiovascular exam: PRESENT: RRR. ABSENT: diastolic murmur, rubs, systolic murmur Pulses: PRESENT: normal dorsalis pedis pul Vascular exam: PRESENT: normal capillary refill GI/Abdominal exam: PRESENT: normal bowel sounds, soft. ABSENT: distended, guarding, mass, organolmegaly, rebound, tenderness Rectal exam: PRESENT: deferred Extremities exam: PRESENT: full ROM. ABSENT: calf tenderness, clubbing, pedal edema Neurological exam: PRESENT: alert, awake, oriented to person, oriented to place, oriented to time, oriented to situation, CN II-XII grossly intact. ABSENT: motor sensory deficit Psychiatric exam: PRESENT: flat affect Skin exam: PRESENT: dry, intact, warm. ABSENT: cyanosis, rash Results Laboratory Results: 03/18/19 03/18/19 03/18/19 20:10 20:10 20:10 WBC 14.5 H RBC 4.97 Hgb 14.8 Hct 43.3 MCV 87 MCH 29.9 MCHC 34.2 RDW 13.5 Plt Count 375 Seg Neutrophils % 73.5 Sodium 145.1 H Potassium 3.7 Chloride 107 Carbon Dioxide 19 L Anion Gap 19 BUN 11 Creatinine 0.87 Est GFR ( Amer) > 60 Glucose 188 H Calcium 9.3 Magnesium 1.8 Total Bilirubin 0.4 AST 21 Alkaline Phosphatase 46 Total Protein 7.4 Albumin 4.7 TSH Urine Color Urine Appearance Urine pH Ur Specific Bryan Urine Protein Urine Glucose (UA) Urine Ketones Urine Blood Urine Nitrite Ur Leukocyte Esterase Urine WBC (Auto) Urine RBC (Auto) 03/18/19 03/19/19 20:10 00:23 WBC RBC Hgb Hct MCV MCH MCHC RDW Plt Count Seg Neutrophils % Sodium Potassium Chloride Carbon Dioxide Anion Gap BUN Creatinine Est GFR ( Amer) Glucose Calcium Magnesium Total Bilirubin AST Alkaline Phosphatase Total Protein Albumin TSH 1.22 Urine Color YELLOW Urine Appearance CLEAR Urine pH 5.0 Ur Specific Bryan 1.027 Urine Protein 30 H Urine Glucose (UA) 150 H Urine Ketones 80 H Urine Blood MODERATE H Urine Nitrite NEGATIVE Ur Leukocyte Esterase NEGATIVE Urine WBC (Auto) 2 Urine RBC (Auto) 11 03/18/19 03/18/19 20:10 20:10 Creatine Kinase 192 H CK-MB (CK-2) 2.85 Assessment and Plan - Diagnosis (1) Acetaminophen overdose Qualifiers: Encounter type: initial encounter Injury intent: undetermined intent Qualified Code(s): T39.1X4A - Poisoning by 4-Aminophenol derivatives, undetermined, initial encounter Is this a current diagnosis for this admission?: Yes Plan: Acetadote initiated, follow-up LFTs and Tylenol level (2) Suicide attempt Is this a current diagnosis for this admission?: Yes Plan: Appears intentional, sitter, follow-up mental health consult (3) Tobacco abuse Is this a current diagnosis for this admission?: Yes Plan: Declines nicotine patch or cessation counseling (4) Substance abuse Is this a current diagnosis for this admission?: Yes Plan: Education when conversational - Time Time Spent with patient: 25-34 minutes - Inpatient Certification Medical Necessity: Need Close Monitoring Due to Risk of Patient Decompensation
[2019-03-19 06:07] LABS: HEMATOCRIT 38.5 % (36.0-47.0); HEMOGLOBIN 13.1 g/dL (12.0-15.5); MEAN CORPUSCULAR HEMOGLOBIN 29.7 pg (27.0-33.4); MEAN CORPUSCULAR VOLUME 87 fl (80-97); PLATELET COUNT 337 10^3/uL (150-450); RED BLOOD COUNT 4.42 10^6/uL (3.72-5.28); RED CELL DISTRIBUTION WIDTH 13.2 % (11.5-14.0); WHITE BLOOD COUNT 21.1 10^3/uL (4.0-10.5)
[2019-03-19 06:19] LABS: ALKALINE PHOSPHATASE 36 U/L (38-126); ANION GAP 12 (5-19); ASPARTATE AMINO TRANSFERASE 21 U/L (14-36); BILIRUBIN,DIRECT 0.1 mg/dL (0.0-0.4); BILIRUBIN,TOTAL 0.5 mg/dL (0.2-1.3); BLOOD UREA NITROGEN 11 mg/dL (7-20); CALCIUM 8.4 mg/dL (8.4-10.2); CARBON DIOXIDE 22 mmol/L (22-30); CHLORIDE 105 mmol/L (98-107); GLUCOSE 112 mg/dL (75-110); POTASSIUM 3.2 mmol/L (3.6-5.0); TOTAL PROTEIN 6.7 g/dL (6.3-8.2)
[2019-03-19 06:37] LABS: ABSOLUTE LYMPHOCYTES# (MANUAL) 2.5 10^3/uL (0.5-4.7); ABSOLUTE MONOCYTES # (MANUAL) 0.8 10^3/uL (0.1-1.4); BASOPHILS % (MANUAL) 0 % (0-2); EOSINOPHILS % (MANUAL) 0 % (0-6); LYMPHOCYTES % (MANUAL) 12 % (13-45); MONOCYTES % (MANUAL) 4 % (3-13); SEGMENTED NEUTROPHILS % (MAN) 84 % (42-78); TOTAL CELLS COUNTED 100
[2019-03-19 06:38] LABS: PLATELET COMMENT ADEQUATE; RBC MORPHOLOGY COMMENT NORMO-CYTIC/CHROMIC
[2019-03-19] MEDS: DOCUSATE SODIUM 100 MG CAPSULE PO SCH ×2 (09:17→17:42)
--- NOTE | 2019-03-19 11:22 | PDOC PROGRESS REPORT ---
Subjective Progress Note for:: 03/19/19 Subjective:: Patient currently denies any abdominal pain. She was nauseous and throwing up last night but does not feel nauseous currently. Patient keeps stating that she would like to go home today otherwise she could get fired. Patient does endorse trying to harm herself yesterday when she overdosed on Tylenol and states that she took about a bottles worth of Tylenol but cannot specify how many pills exactly. She blames it on the fact that she got to emotional after getting drunk on alcohol and reacted after having an argument with her boyfriend. Reason For Visit: TYLENOL OD Physical Exam Vital Signs: Temp Pulse Resp BP Pulse Ox 98.4 F 81 16 140/94 H 100 03/19/19 07:30 03/19/19 07:30 03/19/19 07:30 03/19/19 07:30 03/19/19 07:30 Intake & Output 03/18/19 03/19/19 03/20/19 06:59 06:59 06:59 Intake Total 1000 Balance 1000 Weight 58.3 kg General appearance: PRESENT: no acute distress, cooperative Neck exam: ABSENT: JVD Respiratory exam: PRESENT: clear to auscultation karl, symmetrical, unlabored. ABSENT: tachypnea, wheezes Cardiovascular exam: PRESENT: RRR, +S1, +S2. ABSENT: tachycardia GI/Abdominal exam: PRESENT: normal bowel sounds, soft. ABSENT: guarding, rebound, rigid, tenderness Musculoskeletal exam: PRESENT: ambulatory Neurological exam: PRESENT: alert, awake, oriented to person, oriented to place, oriented to time, oriented to situation Psychiatric exam: PRESENT: anxious. ABSENT: agitated Skin exam: ABSENT: jaundice Results Laboratory Results: 03/19/19 05:47 03/19/19 05:47 03/18/19 03/18/19 03/18/19 20:10 20:10 20:10 WBC 14.5 H RBC 4.97 Hgb 14.8 Hct 43.3 MCV 87 MCH 29.9 MCHC 34.2 RDW 13.5 Plt Count 375 Seg Neutrophils % 73.5 Sodium 145.1 H Potassium 3.7 Chloride 107 Carbon Dioxide 19 L Anion Gap 19 BUN 11 Creatinine 0.87 Est GFR ( Amer) > 60 Glucose 188 H Calcium 9.3 Magnesium 1.8 Total Bilirubin 0.4 AST 21 Alkaline Phosphatase 46 Total Protein 7.4 Albumin 4.7 TSH Urine Color Urine Appearance Urine pH Ur Specific [place] Urine Protein Urine Glucose (UA) Urine Ketones Urine Blood Urine Nitrite Ur Leukocyte Esterase Urine WBC (Auto) Urine RBC (Auto) 03/18/19 03/19/19 03/19/19 20:10 00:23 05:47 WBC 21.1 H RBC 4.42 Hgb 13.1 Hct 38.5 MCV 87 MCH 29.7 MCHC 34.0 RDW 13.2 Plt Count 337 Seg Neutrophils % Not Reportable Sodium Potassium Chloride Carbon Dioxide Anion Gap BUN Creatinine Est GFR ( Amer) Glucose Calcium Magnesium Total Bilirubin AST Alkaline Phosphatase Total Protein Albumin TSH 1.22 Urine Color YELLOW Urine Appearance CLEAR Urine pH 5.0 Ur Specific [place] 1.027 Urine Protein 30 H Urine Glucose (UA) 150 H Urine Ketones 80 H Urine Blood MODERATE H Urine Nitrite NEGATIVE Ur Leukocyte Esterase NEGATIVE Urine WBC (Auto) 2 Urine RBC (Auto) 11 03/19/19 05:47 WBC RBC Hgb Hct MCV MCH MCHC RDW Plt Count Seg Neutrophils % Sodium 138.9 Potassium 3.2 L Chloride 105 Carbon Dioxide 22 Anion Gap 12 BUN 11 Creatinine 0.80 Est GFR ( Amer) > 60 Glucose 112 H Calcium 8.4 Magnesium Total Bilirubin 0.5 AST 21 Alkaline Phosphatase 36 L Total Protein 6.7 Albumin 4.0 TSH Urine Color Urine Appearance Urine pH Ur Specific [place] Urine Protein Urine Glucose (UA) Urine Ketones Urine Blood Urine Nitrite Ur Leukocyte Esterase Urine WBC (Auto) Urine RBC (Auto) 03/18/19 03/18/19 20:10 20:10 Creatine Kinase 192 H CK-MB (CK-2) 2.85 Assessment and Plan - Diagnosis (1) Acetaminophen overdose Qualifiers: Encounter type: initial encounter Injury intent: undetermined intent Qualified Code(s): T39.1X4A - Poisoning by 4-Aminophenol derivatives, undetermined, initial encounter Is this a current diagnosis for this admission?: Yes Plan: Acetadote initiated, patient is currently receiving her last bag of the regimen protocol which will be run over 16 hours and completed around 6 PM today -Tylenol level improved with initiation of Acetadote -Check Tylenol level and CMP at 4 PM today. So far there has been no elevation in transaminases. (2) Substance abuse Is this a current diagnosis for this admission?: Yes Plan: Discussed need to abstain from alcohol consumption and illicit drugs given its influence is under decision making. (3) Suicide attempt Is this a current diagnosis for this admission?: Yes Plan: Awaiting evaluation by psychiatric Continue IVC Continue aripiprazole (4) Leukocytosis Is this a current diagnosis for this admission?: Yes Plan: May be an inflammatory response to Tylenol overdose. We will continue to monitor CBC. (5) Tobacco abuse Is this a current diagnosis for this admission?: Yes - Time Time Spent with patient: 15-24 minutes
[2019-03-19 16:33] LABS: ALBUMIN 3.6 g/dL (3.5-5.0); ALKALINE PHOSPHATASE 42 U/L (38-126); ANION GAP 8 (5-19); ASPARTATE AMINO TRANSFERASE 24 U/L (14-36); BILIRUBIN,DIRECT 0.1 mg/dL (0.0-0.4); BILIRUBIN,TOTAL 0.4 mg/dL (0.2-1.3); BLOOD UREA NITROGEN 8 mg/dL (7-20); CALCIUM 8.6 mg/dL (8.4-10.2); CARBON DIOXIDE 25 mmol/L (22-30); CHLORIDE 107 mmol/L (98-107); GLUCOSE 112 mg/dL (75-110); TOTAL PROTEIN 6.3 g/dL (6.3-8.2)
[2019-03-19 16:42] LABS: ACETAMINOPHEN < 10 ug/mL (10-30)
[2019-03-19 16:44] LABS: POTASSIUM 2.7 mmol/L (3.6-5.0)
--- NOTE | 2019-03-19 17:30 | PSYCHOLOGICAL NOTE ---
Psych Note - Psych Note Date seen by psych provider: 03/19/19 Time seen by psych provider: 14:55 Psych Note: Reason for Consult: Intentional Overdose Patient is alert and orientated to person, place, time and circumstance. Mood is embarrassed with congruent affect. Patient denies suicidal and homicidal ideation. Admits to intentional overdose while intoxicated. Delusions are absent and behaviors congruent with an intact reality based presentation ie organized and linear thought process. Eye contact is well-maintained. Conversational speech is within normal rate, tone and prosody. Intellectual abilities appear to be within the average range. Attention and concentration are good. Insight, judgment, impulse control are fair. Diagnosis: Relationship distress Major depressive disorder Medication recommendations per [facility]'s contracted psychiatrist Dr. Jaqueline STOUT are as follows Celexa 20 mg daily BuSpar 5 mg twice daily Impression\\plan: Patient is cleared from acute psychiatric services. Clinician notes patient had an unknown notarized IVC petition on chart which has been removed by clinician since it is incomplete. At this time patient does not meet IVC criteria per [place] GS 120 2C. She denies thoughts of wanting to harm herself and admits to engaging in taking overdose of Tylenol while intoxicated. Patient states she normally does not drink however was in significant distress from arguing with her boyfriend. Patient states when she grabbed the first can of hard [employer] lemonade she was planning to pack to go visit her son in [place] because he is expecting his second child however her ex-significant other kept calling; "I just wanted to sleep and wake up and it (fighting with biyfriend) all be over with." Patient needs therapeutic services. Please contact behavioral health team prior to discharge so the behavioral health team can coordinate for outpatient mental health services. Dr. Davies was consulted to care management of this patient.
[2019-03-19] MEDS: POTASSIUM CHLORIDE 10 MEQ TABLET.ER PO SCH ×2 (17:43→23:25)
[2019-03-19] MEDS ORDERED: POTASSI CL 20 MEQ/50 ML RIDER 20 MEQ/50 ML RTUPB IV SCH (18:00)
[2019-03-19] MEDS: POTASSIUM CHLORIDE 20 MEQ/50 ML RTU IV SCH ×3 (20:03→23:56)
[2019-03-19] MEDS ORDERED: ARIPIPRAZOLE 5 MG TABLET PO SCH (22:00)
[2019-03-20] MEDS: NORMAL SALINE 1000 ML 1,000 ML IV PRN ×2 (01:40→05:49)
[2019-03-20] MEDS: HEPARIN SOD (PORCINE) 5,000 UNIT/ML 1 ML VIAL SUBCUT SCH (05:02)
[2019-03-20 06:25] LABS: ABSOLUTE BASOPHILS # (AUTO) 0.1 10^3/uL (0.0-0.2); ABSOLUTE EOSINOPHILS # (AUTO) 0.1 10^3/uL (0.0-0.6); ABSOLUTE LYMPHOCYTES (AUTO) 2.8 10^3/uL (0.5-4.7); ABSOLUTE MONOCYTES (AUTO) 0.8 10^3/uL (0.1-1.4); ABSOLUTE NEUT (AUTO) 9.5 10^3/uL (1.7-8.2); BASOPHILS % (AUTO) 0.6 % (0-2); EOSINOPHILS % (AUTO) 0.9 % (0-6); HEMATOCRIT 34.9 % (36.0-47.0); HEMOGLOBIN 11.9 g/dL (12.0-15.5); LYMPHOCYTES % (AUTO) 21.1 % (13-45); MEAN CORPUSCULAR HEMOGLOBIN 29.7 pg (27.0-33.4); MEAN CORPUSCULAR HGB CONC 34.2 g/dL (32.0-36.0); MEAN CORPUSCULAR VOLUME 87 fl (80-97); PLATELET COUNT 293 10^3/uL (150-450); RED BLOOD COUNT 4.01 10^6/uL (3.72-5.28); RED CELL DISTRIBUTION WIDTH 13.3 % (11.5-14.0); SEGMENTED NEUTROPHILS % (AUTO) 71.4 % (42-78); TOTAL CELLS COUNTED % (AUTO) 100 %; WHITE BLOOD COUNT 13.3 10^3/uL (4.0-10.5)
[2019-03-20 06:28] LABS: INTERNATIONAL RATION (INR) 1.13; PROTHROMBIN TIME 14.5 SEC (11.4-15.4)
[2019-03-20 06:46] LABS: PARTIAL THROMBOPLASTIN TIME 31.5 SEC (23.5-35.8)
[2019-03-20 07:01] LABS: ALBUMIN 3.2 g/dL (3.5-5.0); ALKALINE PHOSPHATASE 41 U/L (38-126); ANION GAP 7 (5-19); ASPARTATE AMINO TRANSFERASE 23 U/L (14-36); BILIRUBIN,DIRECT 0.1 mg/dL (0.0-0.4); BILIRUBIN,TOTAL 0.4 mg/dL (0.2-1.3); BLOOD UREA NITROGEN 7 mg/dL (7-20); CALCIUM 7.9 mg/dL (8.4-10.2); CARBON DIOXIDE 21 mmol/L (22-30); CHLORIDE 114 mmol/L (98-107); GLUCOSE 91 mg/dL (75-110); TOTAL PROTEIN 5.6 g/dL (6.3-8.2)
[2019-03-20 07:24] LABS: POTASSIUM 4.1 mmol/L (3.6-5.0)
[2019-03-20 09:04] VITALS: BP 151/89
[2019-03-20] MEDS: DOCUSATE SODIUM 100 MG CAPSULE PO SCH (09:29)
[2019-03-20] MEDS ORDERED: BUSPIRONE HCL 10 MG TABLET PO SCH (10:00)
[2019-03-20] MEDS ORDERED: CITALOPRAM HYDROBROMIDE 20 MG TABLET PO SCH (10:00)
--- NOTE | 2019-03-20 12:59 | PDOC DISCHARGE SUMMARY ---
Impression - Admit/DC Date/PCP Admission Date/Primary Care Provider: 03/18/19 23:57 Discharge Date: 03/20/19 - Discharge Diagnosis (1) Acetaminophen overdose Is this a current diagnosis for this admission?: Yes (2) Substance abuse Is this a current diagnosis for this admission?: Yes (3) Suicide attempt Is this a current diagnosis for this admission?: Yes (4) Leukocytosis Is this a current diagnosis for this admission?: Yes (5) Tobacco abuse Is this a current diagnosis for this admission?: Yes (6) Major depression Is this a current diagnosis for this admission?: Yes - Assessment Summary: Patient was admitted after overdosing on Tylenol. On presentation patient was clearly intoxicated with toxic encephalopathy secondary to alcohol intoxication as well as Tylenol overdose. Blood alcohol level was elevated. Tylenol level was 251. She was started on Acetadote which was administered as per protocol with initial bolus of 1 hour with a subsequent 4-hour bag and subsequently administered over 16 hours. To was the end of the infusion, Tylenol level was repeated and was found to be undetectable and CMP done at the same time showed normal transaminases. Patient was evaluated by psychiatry who deemed that patient was experiencing major depression but did not's meets criteria for involuntary psychiatry confinement. As such they recommended to start patient on Celexa as well as buspirone. I have started patient on this medications. IVC was discontinued as per psych recommendations. Patient has been counseled to abstain from alcohol and substance use giving that it severely impairs her judgment and can cause future overdose. CMP and coags were normal this morning and patient is being cleared to be discharged home. Patient has been instructed to follow-up with her primary care provider in 1 week for repeat CMP and evaluation. - Additional Information Resuscitation Status: Full Code Discharge Diet: As Tolerated Discharge Activity: Activity As Tolerated Referrals: ANATOLY GREER DO [NO LOCAL MD] - 03/27/19 4:00 pm Prescriptions: Buspirone HCl [Buspar 10 mg Tablet] 5 mg PO Q12 30 Days tablet Citalopram Hydrobromide [Celexa 20 mg Tablet] 20 mg PO DAILY #30 tablet Home Medications: Buspirone HCl [Buspar 10 mg Tablet] 5 mg PO Q12 30 Days tablet 03/20/19 Citalopram Hydrobromide [Celexa 20 mg Tablet] 20 mg PO DAILY #30 tablet 03/20/19 History of Present Illiness History of Present Illness: DANIELITO CHAVEZ is a 43 year old female with past medical history of depression, tobacco and substance abuse. She presents after discovered by her son disheveled with empty bottles of Tylenol. Patient was brought to the emergency room for evaluation found to have a toxic acetaminophen level of 251 and started on Acetadote. Patient is IVC and unwilling to provide history or cooperate with provider other than stating she was on antidepressants in the past but otherwise describes her "situation is crazy" but does not elaborate. Physical Exam Vital Signs: Temp Pulse Resp BP Pulse Ox 97.8 F 110 H 18 151/89 H 97 03/20/19 09:02 03/20/19 09:02 03/20/19 09:02 03/20/19 09:02 03/20/19 09:02 Intake & Output 03/19/19 03/20/19 03/21/19 06:59 06:59 06:59 Intake Total 1000 1949 Balance 1000 1949 Weight 58.3 kg 52.9 kg General appearance: PRESENT: no acute distress, cooperative Respiratory exam: PRESENT: clear to auscultation karl Cardiovascular exam: PRESENT: +S1, +S2 GI/Abdominal exam: PRESENT: normal bowel sounds, soft Neurological exam: PRESENT: alert, awake, oriented to person, oriented to place, oriented to time, oriented to situation Results Laboratory Results: WBC 13.3 10^3/uL (4.0-10.5) H 03/20/19 05:48 RBC 4.01 10^6/uL (3.72-5.28) 03/20/19 05:48 Hgb 11.9 g/dL (12.0-15.5) L 03/20/19 05:48 Hct 34.9 % (36.0-47.0) L 03/20/19 05:48 MCV 87 fl (80-97) 03/20/19 05:48 MCH 29.7 pg (27.0-33.4) 03/20/19 05:48 MCHC 34.2 g/dL (32.0-36.0) 03/20/19 05:48 RDW 13.3 % (11.5-14.0) 03/20/19 05:48 Plt Count 293 10^3/uL (150-450) 03/20/19 05:48 Lymph % (Auto) 21.1 % (13-45) 03/20/19 05:48 [place] % (Auto) 6.0 % (3-13) 03/20/19 05:48 Eos % (Auto) 0.9 % (0-6) 03/20/19 05:48 Baso % (Auto) 0.6 % (0-2) 03/20/19 05:48 Absolute Neuts (auto) 9.5 10^3/uL (1.7-8.2) H 03/20/19 05:48 Absolute Lymphs (auto) 2.8 10^3/uL (0.5-4.7) 03/20/19 05:48 Absolute Monos (auto) 0.8 10^3/uL (0.1-1.4) 03/20/19 05:48 Absolute Eos (auto) 0.1 10^3/uL (0.0-0.6) 03/20/19 05:48 Absolute Basos (auto) 0.1 10^3/uL (0.0-0.2) 03/20/19 05:48 Total Counted 100 03/19/19 05:47 Seg Neutrophils % 71.4 % (42-78) 03/20/19 05:48 Seg Neuts % (Manual) 84 % (42-78) H 03/19/19 05:47 Lymphocytes % (Manual) 12 % (13-45) L 03/19/19 05:47 Monocytes % (Manual) 4 % (3-13) 03/19/19 05:47 Eosinophils % (Manual) 0 % (0-6) 03/19/19 05:47 Basophils % (Manual) 0 % (0-2) 03/19/19 05:47 Abs Neuts (Manual) 17.7 10^3/uL (1.7-8.2) H 03/19/19 05:47 Abs Lymphs (Manual) 2.5 10^3/uL (0.5-4.7) 03/19/19 05:47 Abs Monocytes (Manual) 0.8 10^3/uL (0.1-1.4) 03/19/19 05:47 Absolute Eos (Manual) 0.0 10^3/uL (0.0-0.6) 03/19/19 05:47 Abs Basophils (Manual) 0.0 10^3/uL (0.0-0.2) 03/19/19 05:47 Platelet Comment ADEQUATE 03/19/19 05:47 RBC Morph Comment NORMO-CYTIC/CHROMIC 03/19/19 05:47 PT 14.5 SEC (11.4-15.4) 03/20/19 05:48 INR 1.13 03/20/19 05:48 APTT 31.5 SEC (23.5-35.8) 03/20/19 05:48 Sodium 142.1 mmol/L (137-145) 03/20/19 05:48 Potassium 4.1 mmol/L (3.6-5.0) D 03/20/19 05:48 Chloride 114 mmol/L (98-107) H 03/20/19 05:48 Carbon Dioxide 21 mmol/L (22-30) L 03/20/19 05:48 Anion Gap 7 (5-19) 03/20/19 05:48 BUN 7 mg/dL (7-20) 03/20/19 05:48 Creatinine 0.66 mg/dL (0.52-1.25) 03/20/19 05:48 Est GFR ( Amer) > 60 (>60) 03/20/19 05:48 Est GFR (MDRD) Non-Af > 60 (>60) 03/20/19 05:48 Glucose 91 mg/dL (75-110) 03/20/19 05:48 Calcium 7.9 mg/dL (8.4-10.2) L 03/20/19 05:48 Magnesium 1.8 mg/dL (1.6-2.3) 03/18/19 20:10 Total Bilirubin 0.4 mg/dL (0.2-1.3) 03/20/19 05:48 Direct Bilirubin 0.1 mg/dL (0.0-0.4) 03/20/19 05:48 Neonat Total Bilirubin Not Reportable 03/20/19 05:48 Neonat Direct Bilirubin Not Reportable 03/20/19 05:48 Neonat Indirect Bili Not Reportable 03/20/19 05:48 AST 23 U/L (14-36) 03/20/19 05:48 ALT 13 U/L (<35) 03/20/19 05:48 Alkaline Phosphatase 41 U/L (38-126) 03/20/19 05:48 Creatine Kinase 192 U/L (30-135) H 03/18/19 20:10 CK-MB (CK-2) 2.85 ng/mL (<4.55) 03/18/19 20:10 Total Protein 5.6 g/dL (6.3-8.2) L 03/20/19 05:48 Albumin 3.2 g/dL (3.5-5.0) L 03/20/19 05:48 TSH 1.22 uIU/mL (0.47-4.68) 03/18/19 20:10 Urine Color YELLOW 03/19/19 00:23 Urine Appearance CLEAR 03/19/19 00:23 Urine pH 5.0 (5.0-9.0) 03/19/19 00:23 Ur Specific [place] 1.027 03/19/19 00:23 Urine Protein 30 mg/dL (NEGATIVE) H 03/19/19 00:23 Urine Glucose (UA) 150 mg/dL (NEGATIVE) H 03/19/19 00:23 Urine Ketones 80 mg/dL (NEGATIVE) H 03/19/19 00:23 Urine Blood MODERATE (NEGATIVE) H 03/19/19 00:23 Urine Nitrite NEGATIVE (NEGATIVE) 03/19/19 00:23 Urine Bilirubin NEGATIVE (NEGATIVE) 03/19/19 00:23 Urine Urobilinogen NEGATIVE mg/dL (<2.0) 03/19/19 00:23 Ur Leukocyte Esterase NEGATIVE (NEGATIVE) 03/19/19 00:23 Urine WBC (Auto) 2 /HPF 03/19/19 00:23 Urine RBC (Auto) 11 /HPF 03/19/19 00:23 U Hyaline Cast (Auto) 3 /LPF 03/19/19 00:23 Squamous Epi Cells Auto 2 /HPF 03/19/19 00:23 Urine Mucus (Auto) RARE /LPF 03/19/19 00:23 Urine Ascorbic Acid 40 (NEGATIVE) H 03/19/19 00:23 Salicylates 1.3 mg/dL (2.0-20.0) L 03/18/19 20:10 Urine Opiates Screen NEGATIVE 03/19/19 00:23 Urine Methadone Screen NEGATIVE 03/19/19 00:23 Acetaminophen < 10 ug/mL (10-30) L 03/19/19 16:07 Ur Barbiturates Screen NEGATIVE 03/19/19 00:23 Ur Phencyclidine Scrn NEGATIVE 03/19/19 00:23 Ur Amphetamines Screen NEGATIVE 03/19/19 00:23 U Benzodiazepines Scrn NEGATIVE 03/19/19 00:23 Urine Cocaine Screen NEGATIVE 03/19/19 00:23 U Marijuana (THC) Screen UNCONFIRMED POSITIVE 03/19/19 00:23 Serum Alcohol 97 mg/dL (NONE DETECTED) 03/18/19 20:10 03/18/19 20:10 CK-MB (CK-2) 2.85 Plan Time Spent: Less than 30 Minutes Stroke Is this a Stroke Patient?: No Acute Heart Failure - Is this a Heart Failure Patient?: No
== END 2019-03-20 10:15 | disposition home or self-care (01) | DRG 917 ==
LOC: ER 20:03 → EH 23:57 → 4W 03-19 05:00
PROVIDERS: ADMIT Internal Medicine; ATTEND Internal Medicine
PROC: 5A1D70Z Performance of Urinary Filtration, Intermittent, Less than 6 Hours Per Day (ICD-10-PCS; principal; 2019-03-17)
DX: T39.1X4A Poisoning by 4-Aminophenol derivatives, undetermined, initial encounter (principal); G92 Toxic encephalopathy; T14.91XA Suicide attempt, initial encounter; D72.829 Elevated white blood cell count, unspecified; F32.9 Major depressive disorder, single episode, unspecified; F10.129 Alcohol abuse with intoxication, unspecified; I10 Essential (primary) hypertension; F17.200 Nicotine dependence, unspecified, uncomplicated; F12.90 Cannabis use, unspecified, uncomplicated; F19.10 Other psychoactive substance abuse, uncomplicated; Z88.6 Allergy status to analgesic agent
CPT/HCPCS: 36415; 80053; 80307; 81001; 82550; 82553; 83735; 84443; 85025; 85610; 85730; 87070; 93005; 93010; 96361; 96365; 96375; 99285; J0132; J2405; J2765; J3480; J7030